=== PATIENT | female | born 1990 | race African-American/Black ===

== ENCOUNTER 2023-06-18 11:26 | Emergency (ER) | payer MEDICAID ==
[~2023-06-18] VITALS: Ht 167.6 cm; Wt 77.6 kg
[2023-06-18 11:35] VITALS: BP 117/79; PULSE 108; RESP 18; TEMP 98.1; O2SAT 98
[2023-06-18] MEDS ORDERED: IBUP-2213 PO (12:22)
[2023-06-18] MEDS ORDERED: ACETAMINOPHEN EXTRA STRENGTH 500 MG TAB PO ONE (12:30)
== END 2023-06-18 12:45 | disposition home or self-care (01) ==
LOC: MED 11:26
DX: S70.12XA Contusion of left thigh, initial encounter (principal); S70.11XA Contusion of right thigh, initial encounter; M54.50 Low back pain, unspecified; X58.XXXA Exposure to other specified factors, initial encounter; Y93.89 Activity, other specified; Y92.89 Other specified places as the place of occurrence of the external cause; Y99.8 Other external cause status
CPT/HCPCS: 81025; 99282